=== PATIENT | female | born 1980 | race Caucasian/White ===

== ENCOUNTER → 2024-03-25 | Outpatient (CLI) | payer OTHER, BC, SELFPAY ==
[2024-03-25 14:47] LABS: Alanine Aminotransferase 18 U/L (10-49); Albumin, Serum 4.8 gm/dL (3.5-5.0); Alkaline Phosphatase 83 U/L (46-116); Anion Gap 8 (7-16); Aspartate Amino Transferase 19 U/L (0-34); BUN/Creatinine Ratio 15 Ratio (12-20); Bilirubin,Direct 0.3 mg/dL (0.0-0.3); Bilirubin,Total 0.9 mg/dL (0.3-1.2); Blood Urea Nitrogen 12 mg/dL (9-23); Calcium 10.2 mg/dL (8.3-10.6); Carbon Dioxide 30.3 mMol/L (20.0-31.0); Chloride 104 mMol/L (98-107); Creatinine (Component) 0.8 mg/dL (0.6-1.3); Glucose 86 mg/dL (74-106); Osmolality,Calculated 281 (275-295); Phosphorous 2.4 mg/dL (2.4-5.1); Potassium 3.9 mMol/L (3.4-5.1); Sodium 142 mMol/L (136-145); Thyroid Stimulating Hormone 1.31 uIU/mL (0.55-4.78); Total Protein 6.7 gm/dL (5.7-8.2); eGFR > 60 See Note
[2024-03-25 15:01] LABS: Cardiac Risk Estimate 3.4 RATIO (3.7-5.6); Cholesterol 165 mg/dL (132-200); HDL Cholesterol 49 mg/dL (40-60); LDL Cholesterol,Calculated 97 mg/dL (0-130); Triglycerides 95 mg/dL (30-150)
[2024-03-25 20:49] LABS: Urea Breath Test Negative (Negative)
[2024-03-25 23:58] LABS: Vitamin B12 961 pg/mL (211-911); Vitamin D 25 Hydroxy Total 31.7 ng/mL (7.3-40.2)
== END | disposition home or self-care (01) ==
LOC: COPL 12:41
PROVIDERS: PCP Internal Medicine; Referring Provider Internal Medicine; Visit Provider Internal Medicine
DX: Z00.00 Encounter for general adult medical examination without abnormal findings (principal); K30 Functional dyspepsia; E78.5 Hyperlipidemia, unspecified; I10 Essential (primary) hypertension
CPT/HCPCS: 36415; 80048; 80061; 80076; 82306; 82607; 83013; 83014; 84100; 84443; 84550

== ENCOUNTER → 2024-05-12 | Outpatient (CLI) | payer OTHER, BC, SELFPAY ==
[2024-05-12 15:52] LABS: Misc Send Out* See Sep Rpt
[2024-05-12 16:55] LABS: Basophils # (Auto) 0.1 Thou/mm3 (0.0-0.2); Basophils % (Auto) 1 % (0-2.5); Eosinophils # (Auto) 0.2 Thou/mm3 (0.0-0.5); Eosinophils % (Auto) 2 % (0-10); Hematocrit 40.6 % (36.0-46.0); Hemoglobin 14.2 g/dL (12.0-16.0); Immature Granulocytes % (Auto) 1 % (0-0); Immature Granulocytes Auto 0.05 Thou/mm3 (0.00-0.00); Lymphocytes # (Auto) 2.2 Thou/mm3 (1.0-4.8); Lymphocytes % (Auto) 23 % (10-50); Mean Corpuscular Hemoglobin 31.7 pg (25.0-35.0); Mean Corpuscular Volume 91 fL (80-100); Monocytes # (Auto) 0.7 Thou/mm3 (0.0-0.8); Monocytes % (Auto) 7 % (0-12); Neutrophils # (Auto) 6.3 Thou/mm3 (1.8-7.7); Neutrophils % (Auto) 67 % (37-80); Nucleated Red Blood Cell % 0 /100 WBC (0); Platelet Count 288 Thou/mm3 (140-440); RDW Standard Deviation 42.9 fL (36.4-46.3); Red Blood Count 4.48 Miln/mm3 (4.00-5.20); White Blood Count 9.4 Thou/mm3 (3.6-11.0)
[2024-05-12 17:15] LABS: Sed Rate (ESR) 5 mm/hr (0-20)
[2024-05-12 23:16] LABS: Alanine Aminotransferase 19 U/L (10-49); Albumin, Serum 4.6 gm/dL (3.5-5.0); Albumin/Globulin Ratio 2.4 (1.2-2.2); Alkaline Phosphatase 72 U/L (46-116); Anion Gap 11 (7-16); Aspartate Amino Transferase 20 U/L (0-34); BUN/Creatinine Ratio 18 Ratio (12-20); Bilirubin,Total 0.7 mg/dL (0.3-1.2); Blood Urea Nitrogen 14 mg/dL (9-23); Calcium 10.7 mg/dL (8.3-10.6); Calcium (Corrected) 10.7 mg/dL (8.5-10.1); Carbon Dioxide 28.3 mMol/L (20.0-31.0); Chloride 101 mMol/L (98-107); Creatinine (Component) 0.8 mg/dL (0.6-1.3); Globulin 1.9 gm/dL (2.3-3.5); Glucose 88 mg/dL (74-106); Osmolality,Calculated 278 (275-295); Potassium 3.8 mMol/L (3.4-5.1); Sodium 140 mMol/L (136-145); Total Protein 6.5 gm/dL (5.7-8.2); eGFR > 60 See Note
[2024-05-12 23:32] LABS: C-Reactive Protein 1.4 mg/dL (0.0-0.9)
[2024-05-21 07:13] LABS: tTG Ab, IgA <1.0 U/mL
[2024-05-21 07:14] LABS: Immunoglobulin A 104 mg/dL (47-310)
== END | disposition home or self-care (01) ==
LOC: COPL 15:33
PROVIDERS: PCP Internal Medicine; Referring Provider Specialist; Visit Provider Specialist
DX: R10.32 Left lower quadrant pain (principal); R10.31 Right lower quadrant pain; R14.0 Abdominal distension (gaseous)
CPT/HCPCS: 36415; 80053; 82784; 85025; 85652; 86140; 86364

== ENCOUNTER → 2024-05-15 | Outpatient (CLI) | payer OTHER, BC, SELFPAY ==
[2024-05-25 06:58] LABS: Calprotectin, Stool* 8 mcg/g
== END | disposition home or self-care (01) ==
LOC: SLDO 16:49
PROVIDERS: Referring Provider Specialist; Visit Provider Specialist
DX: R10.31 Right lower quadrant pain (principal); R10.32 Left lower quadrant pain; R14.0 Abdominal distension (gaseous)
CPT/HCPCS: 83993

== ENCOUNTER → 2024-11-03 | Outpatient (CLI) | payer BC, OTHER, SELFPAY ==
--- NOTE | 2024-11-03 16:02 | XR_ITS ---
Examination: Knee bilateral, 6 views Technique: Knee AP, lateral, oblique each knee total 6 views Date and time of exam: November 03, 2024 1636 hrs. Indications: Patient fell 3 weeks ago with injury to both knees, bilateral knee pain. Findings: No fracture or dislocation involving either knee. Early osteoarthritis bilateral medial patellofemoral joints Impression: No fracture or dislocation involving either knee
--- NOTE | 2024-11-03 16:02 | XR_ITS ---
Examination: Wrist, right 3 views Technique: Wrist AP, oblique, lateral 3 views Date and time of exam: November 03, 2024 1636 hrs. Indications: Wrist pain 3 weeks. Findings: No fracture or dislocation No avascular necrosis. No foreign body. Minimal osteoarthritis radiocarpal joint Impression: Minimal osteoarthritis
== END | disposition home or self-care (01) ==
PROVIDERS: PCP Internal Medicine; Referring Provider Internal Medicine; Visit Provider Internal Medicine
DX: M19.031 Primary osteoarthritis, right wrist (principal); S89.92XA Unspecified injury of left lower leg, initial encounter; S89.91XA Unspecified injury of right lower leg, initial encounter; W19.XXXA Unspecified fall, initial encounter
CPT/HCPCS: 73110; 73562

== ENCOUNTER → 2025-01-07 | Outpatient (CLI) | payer BC, OTHER, SELFPAY ==
[2025-01-07 14:03] LABS: Collection Type, Urine Clean Catch
[2025-01-07 16:38] LABS: Amorphous Crystals,Urine Present (Absent); Bilirubin,Urine 1+ (Negative); Blood,Urine Negative (Negative); Color,Urine Drk-Yellow (Lt Yel-Yel); Glucose, Urine Negative (Negative); Hyaline Casts,Urine < 1 /hpf (0-1); Ketones,Urine Negative (Negative); Leukocyte Esterase,Urine Positive (Negative); Nitrite,Urine Positive (Negative); PH,Urine 7.5 (5.0-7.0); Protein,Urine Negative (Neg - Trace); RBC,Urine 8 /hpf (0-3); Specific Gravity,Urine 1.020 (1.001-1.035); Squamous Epithelial Cell,Urine < 1 /hpf (0-5); Urobilinogen,Urine 3.0 mg/dL (0.0-1.0); WBC,Urine 33 /hpf (0-5)
[2025-01-07 16:41] LABS: Clarity,Urine Hazy (Clear/Hazy); Culture Indicated,Urine Yes
== END | disposition home or self-care (01) ==
LOC: SLDO 13:59
PROVIDERS: Referring Provider Internal Medicine; Visit Provider Internal Medicine
DX: N20.0 Calculus of kidney (principal)
CPT/HCPCS: 81001; 87077; 87086; 87186

== ENCOUNTER → 2025-02-05 | Outpatient (CLI) | payer BC, OTHER, SELFPAY ==
--- NOTE | 2025-02-05 11:00 | XR_ITS ---
Examination: Retroperitoneal ultrasound, complete Technique: Multiple high resolution grayscale images of the retroperitoneum obtained, including kidneys and bladder. Exam date and time: February 05, 2025, 1051 hours, comparison December 05, 2020 INDICATIONS: Lower flank pain back pain beginning 3 days ago FINDINGS: Right kidney 10.5 cm cortex 2.5 cm Left kidney 9.6 cm renal cortex 2.1 cm Moderate renal scar formation No hydronephrosis Contracted urinary bladder IMPRESSION: Moderate renal scar formation No hydronephrosis
== END | disposition home or self-care (01) ==
LOC: CDIM 10:42
PROVIDERS: PCP Internal Medicine; Referring Provider Internal Medicine; Visit Provider Internal Medicine
DX: N28.89 Other specified disorders of kidney and ureter (principal)
CPT/HCPCS: 76770